=== PATIENT | male | born 1960 | race Caucasian/White ===

== ENCOUNTER 2022-04-21 07:32 | Outpatient (CLI) | payer BC, SELFPAY | END 2022-04-21 07:33 | disposition home or self-care (01) | PROVIDERS: PCP Family Medicine; Visit Provider Family Medicine | DX: Z00.00 Encounter for general adult medical examination without abnormal findings (principal); E78.5 Hyperlipidemia, unspecified; R03.0 Elevated blood-pressure reading, without diagnosis of hypertension; E66.9 Obesity, unspecified; I48.91 Unspecified atrial fibrillation; M10.9 Gout, unspecified; Z13.6 Encounter for screening for cardiovascular disorders; Z12.5 Encounter for screening for malignant neoplasm of prostate | CPT/HCPCS: 80053; 80061; 84153 ==

== ENCOUNTER 2023-11-17 07:27 | Outpatient (CLI) | payer MEDICARE, BC, SELFPAY | END 2023-11-17 07:28 | disposition home or self-care (01) | LOC: NFLDREF 19:26 | PROVIDERS: PCP Family Medicine; Referring Provider Family Medicine; Visit Provider Family Medicine | DX: Z00.00 Encounter for general adult medical examination without abnormal findings (principal); E78.5 Hyperlipidemia, unspecified; E66.9 Obesity, unspecified; M10.9 Gout, unspecified; Z12.5 Encounter for screening for malignant neoplasm of prostate | CPT/HCPCS: 80053; 80061; G0103 ==

== ENCOUNTER 2023-11-24 07:22 | Outpatient (CLI) | payer MEDICARE, BC, SELFPAY ==
--- NOTE | 2023-11-24 08:26 | W.ANESCHARGE ---
Anesthesia Charges Start Date/Time Anesthesia Start Date: 11/24/23 Anesthesia Start Time: 07:58 Stop Date/Time Anesthesia Stop Date: 11/24/23 Anesthesia Stop Time: 08:23
--- NOTE | 2023-11-24 09:21 | W.ANESCHARGE ---
Anesthesia Charges Start Date/Time Anesthesia Start Date: 11/24/23 Anesthesia Start Time: 07:58 Stop Date/Time Anesthesia Stop Date: 11/24/23 Anesthesia Stop Time: 08:23
== END 2023-11-24 07:23 | disposition home or self-care (01) ==
LOC: OP CLINIC 07:25
PROVIDERS: PCP Family Medicine; Visit Provider Internal Medicine
DX: Z12.11 Encounter for screening for malignant neoplasm of colon (principal); D12.5 Benign neoplasm of sigmoid colon; K57.30 Diverticulosis of large intestine without perforation or abscess without bleeding; Z86.0100 Personal history of colon polyps, unspecified
CPT/HCPCS: 00811; 45380; 88305; J2704

== ENCOUNTER 2024-03-10 12:44 | Outpatient (CLI) | payer MEDICARE, BC, SELFPAY ==
--- NOTE | 2024-03-10 13:00 | MR_ITS ---
[address] [address] Phone:?[phone] Fax:?[phone] Referring Physician Information: Thaddeus Ritter M.D. [address] [facility] [address] Phone:?[phone] Fax:?[phone] Patient:Braden Wilcox Dago.Shyla.B:?1960 Sex:?Male Phone:?[phone] [facility] MRN:?[id number] Exam Date:?03/10/2024 EXAM: MRI of the LEFT SHOULDER WITHOUT CONTRAST CLINICAL HISTORY: Ongoing left shoulder pain. Strain of muscle, fascia, and tendon. Evaluate for rotator cuff tear. COMPARISONS: Plain radiographs 03/04/2024. TECHNICAL: MRI sequences of the left shoulder: Axials: PD, T2 Coronals: PD, STIR, T2 Sagittals: PD, T2 SEDATION: None CONTRAST: None FINDINGS: Bones: No fracture or suspicious bone marrow signal abnormality. Coracoacromial arch: Acromion: No os acromiale. Type I-II acromion. Acromiohumeral space: The bony distance is unremarkable. Acromioclavicular joint: No acute injury, arthropathy, or inferior hypertrophy. Coracoclavicular ligament: The coracoclavicular ligament is intact. Rotator cuff muscles/tendons: Supraspinatus: Minimal tendinopathy. No muscular atrophy. Infraspinatus: The infraspinatus tendon and muscle are intact. Teres minor: The teres minor tendon and muscle are intact. Subscapularis: The subscapularis tendon and muscle are intact. Labrum and glenohumeral joint: Anteroinferior labral tear, not optimally evaluated because of nonarthrogram technique, with an associated 1.4 cm in craniocaudad dimension by 1.1 cm in AP dimension by 1.6 cm in transverse dimension anteroinferior paralabral cyst. Short segment type II SLAP tear from the 12:00 position through 11:00 position posterosuperiorly best seen on coronal series 5 images 13 through 15. Physiologic amount of joint fluid. No discrete chondral defect or subchondral bone marrow edema/cystic change is seen. There is edema-like signal within and thickening of the inferior glenohumeral ligament/glenohumeral joint capsule, and there is soft tissue thickening within the rotator interval. Proximal biceps tendon, long head and short heads: The long head of the biceps tendon appears predominantly intact although evaluation is compromised by patient motion artifact. The short head is intact. Bursae: Subacromial/subdeltoid: No convincing subacromial bursal thickening/bursitis. Subcoracoid: No convincing subcoracoid bursal thickening/bursitis. IMPRESSION: 1. Findings associated with adhesive capsulitis; correlate with active and passive range of motion. 2. Anteroinferior labral tear, not optimally evaluated because of nonarthrogram technique, with an associated 1.4 x 1.1 x 1.6 cm anteroinferior paralabral cyst. Short segment type II SLAP tear from the 12:00 position through 11:00 position posterosuperiorly. 3. Minimal supraspinatus tendinopathy. 4. No discrete rotator cuff tendon tear or rotator cuff muscular atrophy of the left shoulder. The long head of the biceps tendon appears predominantly intact although evaluation is compromised by patient motion artifact. RCB Electronically signed on 03/11/2024 9:01:00 AM by Higinio Acevedo M.D.
== END 2024-03-10 12:45 | disposition home or self-care (01) ==
LOC: MRI 12:47
PROVIDERS: PCP Family Medicine; Visit Provider Orthopaedic Surgery Sports Medicine
DX: M25.512 Pain in left shoulder (principal); M75.02 Adhesive capsulitis of left shoulder; S43.432A Superior glenoid labrum lesion of left shoulder, initial encounter; S46.212A Strain of muscle, fascia and tendon of other parts of biceps, left arm, initial encounter; M75.102 Unspecified rotator cuff tear or rupture of left shoulder, not specified as traumatic
CPT/HCPCS: 73221

== ENCOUNTER 2024-04-21 08:00 | Outpatient (RCR) | payer MEDICARE, BC, SELFPAY ==
--- NOTE | 2024-04-07 08:54 | PT.OPEX ---
PT [facility] Outpatient Eval PT [facility] Outpatient Eval Start: 04/07/24 07:37 Freq: Status: Active Protocol: Document 04/07/24 08:53 GONZALEZ (Rec: 04/07/24 08:54 GONZALEZ [id number]) E-signed By Jeff Cardozo DPT Physical Therapy Outpatient Evaluation Insurance Information Recert Due Date 07/06/24 Insurance Name Medicare B,Other; See Comments Medical Diagnosis adhesive capsulitis L slap tear minimal rotator cuff tendinopathy Treating Diagnosis L Shoulder pain stiffness of shoulder Imaging Report Information MRI findings: adhesive capsulitis, partial slap tear 11-12 position, supra spinatus tendinopathy Referring MD demetrio mitchell Subjective Subjective dilshad comes into clinic dealing with shoulder pain secondary to adhesive capsulitis, partial slap tear 11-12 position, supraspinatus tendinopathy.States over the last 3 months or so he has been dealing with more pain that has limited his ADLS from dressing to sleeping/rolling in bed. HAs has pain with general shoulder ROM as well. About a week ago was able to get seen by and was provided a cortisone injection which seems to have alleviated a fair amount of symptoms. Still has trouble with same activities just to a lesser degrees Pain Comments -06/18 Current Work Status Retired Objective Other/Pertinent Objective SHOULDER AROM Flexion: R163 L 130 Abduction: R171 L 151 with pain Internal Rotation: R t9-10 L T11-12 External Rotation: R76 L 55 NECK/SHOULDER MMT: WNL on R Shoulder flexion: L 4/5 Shoulder abduction: L 4/5 Shoulder External Rotation: L4 /5 Shoulder Internal Rotation: L 4-/5 Elbow flexion: L4+ /5 Elbow extension L 5/5 JOINT MOBILITY/PALPATION increased pain with PROM specifically in posterior shoulder TX: Assessment Assessment/Impression Pt is a 63 yr old male who presents with concerns of shoulder pain and stiffness secondary to adhesive capsulitis . Patient also has notable objective findings including limited ROM, impaired shoulder stability , decreased strength also likely contributing to the problem. Patient is a good candidate for skilled therapy to target deficits described above. Skilled PT intervention is necessary for use of therapeutic exercise manual therapy, neuromuscular re- education, , and therapeutic activity. Functional impairments include difficulty with: reaching lifting sleeping . See appropriate sections of PT eval for complete list of goals and POC . D/C plan and criteria is for pt to achieve the goals as listed below or until max rehab potential is met. Pt was agreeable with plan of care and goals established. Plan of Care Rehabilitation Potential Good Physical Therapy Goals GOALS Pt will be independent with HEP within 10-12 weeks to allow for independence and continued improvement past formal therapy Patient will demonstrate/ report ability to sleep with losing <1 hours of sleep being interrupted by shoulder pain. 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 Coordination/Communication With Referral Source Treatment Plan/Direct Interventions Joint Mobilization,Manual Therapy,Neuromuscular Re-ed, Self-Care/Home Management, Therapeutic Activities, Therapeutic Exercises Frequency/Duration 1-2 visits a week for 10-12 weeks with decreasing frequency as able Patient Will Be Discharged From Therapy Independent w/HEP, Independently Progressing Evaluation Billing Untimed Code Treatment Minutes 25 Complexity Low Certification Information Initial Certification Date 04/07/24 Ending Certification Date 07/06/24 Provider Signature Required Yes Provider Signature Shows Agreement With POC & Medical Necessity Physician NPI Number Write NPI# Here Physician Comment/Change : Physician Signature & Date Requested Please Sign/Date Here
== END 2024-08-19 23:59 | disposition home or self-care (01) ==
PROVIDERS: PCP Family Medicine; Visit Provider Orthopaedic Surgery Sports Medicine
DX: M67.912 Unspecified disorder of synovium and tendon, left shoulder (principal); S43.432A Superior glenoid labrum lesion of left shoulder, initial encounter; M75.02 Adhesive capsulitis of left shoulder; Z51.89 Encounter for other specified aftercare
CPT/HCPCS: 97110; 97140; 97161